=== PATIENT | female | born 1980 | race Caucasian/White ===

== ENCOUNTER 2017-01-19 07:37 | Emergency (ER) | payer MEDICAID ==
[~2017-01-19] VITALS: Ht 162.6 cm; Wt 77.1 kg
[2017-01-19 07:38] VITALS: BP 130/84
== END 2017-01-19 08:33 | disposition home or self-care (01) ==
LOC: ED 07:37
DX: R11.10 Vomiting, unspecified (principal); R19.7 Diarrhea, unspecified
CPT/HCPCS: J1885; Q0162

== ENCOUNTER 2017-06-15 08:39 | Emergency (ER) | payer MEDICAID ==
[~2017-06-15] VITALS: Ht 162.6 cm; Wt 78.5 kg
[2017-06-15 08:51] VITALS: Ht 162.6 cm; Wt 78.5 kg
[2017-06-15 10:31] LABS: BASOPHIL % 0.2 % (0-2); PLATELET COUNT 208 x10^3mcL (130-400); RED CELL DISTRIBUTION WIDTH 13.6 % (11.5-14.5)
[2017-06-15 10:39] LABS: CALCIUM 8.9 mg/dL (8.5-10.1); CARBON DIOXIDE 22.1 mmol/L (21-32); CHLORIDE SERUM 104 mmol/L (98-107); CREATININE SERUM 0.7 mg/dL (0.6-1.0); GFR1 > 60 mL/min; GLUCOSE SERUM 95 mg/dL (74-106); SODIUM SERUM 136 mmol/L (136-145)
[2017-06-15 12:16] VITALS: BP 126/87
== END 2017-06-15 12:16 | disposition home or self-care (01) ==
LOC: ED 08:39
PROVIDERS: Emergency Medicine
DX: B34.9 Viral infection, unspecified (principal); E07.9 Disorder of thyroid, unspecified
CPT/HCPCS: 36415; 87804; J7620; Q9967

== ENCOUNTER 2017-08-23 21:28 | Emergency (ER) | payer MEDICAID ==
[~2017-08-23] VITALS: Ht 162.6 cm; Wt 73.9 kg
[2017-08-24 01:31] LABS: BASOPHIL % 0.3 % (0-2); PLATELET COUNT 211 x10^3mcL (130-400); RED CELL DISTRIBUTION WIDTH 13.9 % (11.5-14.5)
[2017-08-24 01:35] LABS: CARBON DIOXIDE 24.2 mmol/L (21-32); CHLORIDE SERUM 104 mmol/L (98-107); CREATININE SERUM 0.9 mg/dL (0.6-1.0); GFR1 > 60 mL/min; GLUCOSE SERUM 101 mg/dL (74-106); POTASSIUM SERUM 3.8 mmol/L (3.5-5.1); SODIUM SERUM 140 mmol/L (136-145)
[2017-08-24 01:39] LABS: ALBUMIN 3.7 g/dL (3.4-5.0); ALKALINE PHOSPHATASE 103 U/L (46-116); ALT/SGPT 27 U/L (14-59); AST/SGOT 24 U/L (15-37); BILIRUBIN TOTAL 0.27 mg/dL (0.20-1.00); TOTAL PROTEIN, SERUM 7.8 g/dL (6.4-8.2)
[2017-08-24 03:37] VITALS: BP 124/73
== END 2017-08-24 03:37 | disposition home or self-care (01) ==
LOC: ED 21:28
PROVIDERS: Emergency Medicine
DX: K92.2 Gastrointestinal hemorrhage, unspecified (principal); R19.7 Diarrhea, unspecified; R07.89 Other chest pain
CPT/HCPCS: 83880; J2405; J3010; J7030; Q0092; Q0162

== ENCOUNTER 2017-10-21 06:46 | Emergency (ER) | payer MEDICAID ==
[~2017-10-21] VITALS: Ht 162.6 cm; Wt 75.3 kg
[2017-10-21 06:56] VITALS: Ht 162.6 cm; Wt 75.3 kg
[2017-10-21 09:01] LABS: BASOPHIL % 0.2 % (0-2); PLATELET COUNT 201 x10^3mcL (130-400); RED CELL DISTRIBUTION WIDTH 13.5 % (11.5-14.5)
[2017-10-21 10:56] VITALS: BP 123/82
== END 2017-10-21 10:56 | disposition home or self-care (01) ==
LOC: ED 06:46
PROVIDERS: Emergency Medicine
DX: O20.0 Threatened abortion (principal); Z3A.01 Less than 8 weeks gestation of pregnancy
CPT/HCPCS: 36415

== ENCOUNTER 2017-10-23 14:25 | Emergency (ER) | payer MEDICAID ==
[~2017-10-23] VITALS: Ht 162.6 cm; Wt 75.8 kg
[2017-10-23 14:34] VITALS: Ht 162.6 cm; Wt 75.8 kg
[2017-10-23 17:32] VITALS: BP 124/62
== END 2017-10-23 17:32 | disposition home or self-care (01) ==
LOC: ED 14:25
DX: O20.0 Threatened abortion (principal); E03.9 Hypothyroidism, unspecified

== ENCOUNTER 2017-10-28 13:57 | Emergency (ER) | payer MEDICAID ==
[~2017-10-28] VITALS: Ht 162.6 cm; Wt 75.7 kg
[2017-10-28 14:05] VITALS: Ht 162.6 cm; Wt 75.7 kg
[2017-10-28 14:52] LABS: BASOPHIL % 0.8 % (0-2); PLATELET COUNT 193 x10^3mcL (130-400); RED CELL DISTRIBUTION WIDTH 13.5 % (11.5-14.5)
[2017-10-28 14:53] LABS: UA SPECIFIC GRAVITY <=1.005 (1.005-1.035); microscopic required? YES; urine erythrocyte 3+ (NEGATIVE)
[2017-10-28 15:02] LABS: CALCIUM 9.4 mg/dL (8.5-10.1); CARBON DIOXIDE 24.2 mmol/L (21-32); CHLORIDE SERUM 103 mmol/L (98-107); CREATININE SERUM 0.7 mg/dL (0.6-1.0); GFR1 > 60 mL/min; GLUCOSE SERUM 74 mg/dL (74-106); POTASSIUM SERUM 3.6 mmol/L (3.5-5.1); SODIUM SERUM 137 mmol/L (136-145)
[2017-10-28 15:06] LABS: ALBUMIN 3.7 g/dL (3.4-5.0); ALKALINE PHOSPHATASE 86 U/L (46-116); ALT/SGPT 26 U/L (14-59); AST/SGOT 23 U/L (15-37); BILIRUBIN TOTAL 0.26 mg/dL (0.20-1.00); TOTAL PROTEIN, SERUM 8.1 g/dL (6.4-8.2)
[2017-10-28 16:33] VITALS: BP 125/87
== END 2017-10-28 16:33 | disposition home or self-care (01) ==
LOC: ED 13:57
PROVIDERS: Emergency Medicine
DX: O20.0 Threatened abortion (principal); E03.9 Hypothyroidism, unspecified
CPT/HCPCS: 36415; Q0092